=== PATIENT | male | born 1965 | race Caucasian/White ===

== ENCOUNTER → 2022-02-24 | Outpatient (CLI) | payer OTHER ==
--- NOTE | 2022-02-24 14:35 | Diagnostic Imaging Report ---
EXAMINATION: Left knee radiographs, 4 views. COMPARISON: None. HISTORY: 56-year-old male, left knee pain. FINDINGS: There is severe medial compartment joint space loss with [id number] articulation. There are tricompartment osteophytes. There is also severe patellofemoral compartment joint space loss. The patella is normally positioned. There does appear to be a small knee joint effusion. There is no identified acute fracture. IMPRESSION: 1. Severe tricompartmental osteoarthritis most notably involving the medial and patellofemoral compartments with small left knee joint effusion. Dictated by: Dictated on workstation # [id number]
== END ==
LOC: ORTHO 14:01
PROVIDERS: ATTEND Orthopaedic Surgery
DX: M17.12 Unilateral primary osteoarthritis, left knee (principal)
CPT/HCPCS: 73564; G0463; 99203

== ENCOUNTER → 2022-03-17 | Outpatient (CLI) | payer OTHER | LOC: ORTHO 14:08 | PROVIDERS: ATTEND Orthopaedic Surgery | DX: M17.12 Unilateral primary osteoarthritis, left knee (principal) | CPT/HCPCS: 20610 ==